=== PATIENT | female | born 1975 | race African-American/Black ===

== ENCOUNTER 2019-09-21 18:13 | Emergency (ER) | payer BC, SELFPAY ==
[2019-09-21 19:11] VITALS: BP 144/82; PULSE 80; RESP 16; TEMP 36.8; O2SAT 100
--- NOTE | 2019-09-21 19:59 | ED.WOUNDLAC ---
HPI - Wound/Laceration General Chief Complaint: Wound/Laceration Stated Complaint: wound right axilla Time Seen by Provider: 09/21/19 19:15 Source: patient Mode of arrival: ambulatory Limitations: no limitations History of Present Illness HPI narrative: This is a 44 year old female that presents to the ER for abscess to right axilla x 2 weeks. Reports it started draining yesterday. Reports the pain was increasing which prompted her to be seen. Denies fever. Related Data Home Medications Medication Instructions Recorded Confirmed topiramate [Topamax] PRN 06/27/19 Allergies Allergy/AdvReac Type Severity Reaction Status Date / Time ampicillin Allergy Rash Verified 09/21/19 19:39 Penicillins Allergy Rash Verified 09/21/19 19:39 Review of Systems Review of Systems: Narrative: CONSTITUTIONAL: Denies fever SKIN: Reports abscess All systems reviewed & are unremarkable except as noted in HPI and below PMFSH Past Medical History Medical History (Updated 09/21/19 @ 20:57 by Rabia Sterling PA-C) History of migraine Social History Social History (Updated 09/21/19 @ 20:05 by Rabia Sterling PA-C) Smoking status: Never smoker Gender identity (if verbalized by the patient): Female Exam Narrative: Exam Narrative: GENERAL: Well-appearing, obese, and in no acute distress. HEAD: Normocephalic, atraumatic. EYES: EOMI. EXTREMITIES: Normal range of motion. No edema. Right axilla with 3cm area of erythema with central fluctuance, spontaneously draining. No lymphangitic streaking SKIN: Warm, dry, no rash. NEURO: No focal deficits. Alert and oriented x3. PSYCH: Normal mood and affect Course Vital Signs Vital signs: Vital Signs Temperature 98.3 F 09/21/19 19:11 Pulse Rate 80 09/21/19 19:11 Respiratory Rate 16 09/21/19 19:11 Blood Pressure 144/82 H 09/21/19 19:11 Pulse Oximetry 100 09/21/19 19:11 Temperature 98.3 F 09/21/19 19:11 Pulse Rate 80 09/21/19 19:11 Respiratory Rate 16 09/21/19 19:11 Blood Pressure 144/82 H 09/21/19 19:11 Pulse Oximetry 100 09/21/19 19:11 Procedures Abscess I/D upper extremity: Date of Incision: 09/21/19 Time of Incision: 20:56 Side (if applicable): right Local Anesthetic: lidocaine 1% and with epi Amount of anesthesia used (mL): 3 Technique: incised with #11 blade Packing used?: iodoform I&D Results: Pus and Blood Abcess I&D Additional Comments: Patient tolerated procedure well MDM - Wound/Laceration MDM Narrative Medical decision making narrative: Patient presents the emergency department for abscess to right axilla. She is afebrile and nontoxic-appearing. Abscess already spontaneously draining, this was opened up a little bit more to ensure proper drainage. She will be started on oral antibiotics. She is to follow-up with primary care doctor. She is given warnings to return to the ER Critical Care Time Critical Care Time Critical Care Time: No Discharge Plan Discharge Clinical Impression: Abscess Patient Disposition: Home, Self-Care Condition: Stable Instructions: Antibiotic Form, Abscess (ED) Additional Instructions: Return if symptoms worsen or concerns, any increase in redness swelling pain or fever over 101 Take antibiotics as directed. Clean wound with mild soapy water. Apply antibiotic ointment and clean dressing at least three times daily. Warm compresses 3 times a day for 30 minutes each Follow up with primary care in the next 2-3 days for re-evaluation and packing removal Prescriptions: New doxycycline hyclate 100 mg tablet 100 mg PO BID 5 Days Qty: 10 RF: 0 No Action topiramate [Topamax] 50 mg Tablet PRN (Reason: Migraine Headache) RF: 0 Follow-up/Referrals: UNKNOWN,DOCTOR [Primary Care Provider] - 3 Days
== END 2019-09-21 21:15 | disposition home or self-care (01) ==
PROVIDERS: Emergency Provider Emergency Medicine
DX: L02.411 Cutaneous abscess of right axilla (principal)
CPT/HCPCS: 10061; 99283

== ENCOUNTER 2020-04-03 20:19 | Emergency (ER) | payer BC, SELFPAY ==
[2020-04-03 20:38] VITALS: BP 149/108; PULSE 98; RESP 20; TEMP 36.3; O2SAT 97
--- NOTE | 2020-04-03 21:16 | ED.PSYCH ---
HPI - Psych General Chief Complaint: Psychiatric Symptoms Stated Complaint: SI, depression Time Seen by Provider: 04/03/20 21:01 Source: patient Mode of arrival: ambulatory Limitations: no limitations History of Present Illness HPI Narrative: This patient is a 45 year old Female with history of depression who presents for evaluation of depression. Police brought patient to ED for psychiatric evaluation. He states patient was crying uncontrollably and the police state that she told them she was suicidal but she had no plan. Patient denies being suicidal to me. She states she is depressed and she is just dealing with a lot. She reports she gets depressed about once a week. She denies having thoughts of hurting herself or anybody else. She does admit to being suicidal 15 years ago but she denies attempting suicide at that time. She stopped taking her Celexa about 1 year ago because she did not think she needed it anymore. Related Data Home Medications Medication Instructions Recorded Confirmed topiramate [Topamax] PRN 06/27/19 Allergies Allergy/AdvReac Type Severity Reaction Status Date / Time ampicillin Allergy Rash Verified 04/03/20 20:43 Penicillins Allergy Rash Verified 04/03/20 20:43 Review of Systems Review of Systems: All systems reviewed & are unremarkable except as noted in HPI and below Constitutional: Constitutional: Denies chills and Denies fever(s) ENT: Denies nasal congestion and Denies sore throat Cardiovascular: Cardiovascular: Denies chest pain Respiratory: Respiratory: Denies cough and Denies dyspnea Gastrointestinal: Gastrointestinal: Denies abdominal pain, Denies nausea and Denies vomiting COUNT INCLUDES THE [facility] Past Medical History Medical History (Updated 04/04/20 @ 03:29 by Rocio Eldridge MD) Depression History of migraine Surgical History Surgical History (Updated 04/04/20 @ 03:25 by Rocio Eldridge MD) History of cholecystectomy Social History Social History (Updated 09/21/19 @ 20:05 by Rabia Sterling PA-C) Smoking status: Never smoker Gender identity (if verbalized by the patient): Female Exam Const: General: no acute distress and alert Orientation/consciousness: patient oriented x3 HENMT: Head: normocephalic and atraumatic Face and sinus: face symmetric Mouth: Yes Normal oral and palatal mucosa present and Yes lip normal Throat: posterior oropharynx normal, tonsils normal and uvula midline Eyes: Pupils: Equal, round and reactive pupils present EOM: EOMs intact bilaterally Resp: Effort & Inspection: normal respiratory effort and no retractions Auscultation: clear to auscultation bilaterally GI: GI Palp: Yes Soft to palpation, No Tenderness to palpation present (GI), No Guarding due to palpation present (GI) and No Rigid due to palpation Neuro: General: patient oriented x3 and moves all extremities Speech: Abnormal speech present Psych: Appearance: well kempt Mental Status: mental status grossly normal Thought content: No Suicidality present and No Hallucination(s) present Course Reevaluation(s) Reevaluation #1: PAtient was assessed by Crisis. She has denied being suicidal to all nursing staff and myself. IT is felt she is safe for discharged. Crisis states she started Depression medication 2 days ago . She will be given antibiotics for abnormal UA Date: 04/04/20 Time: 03:27 Vital Signs Vital signs: Vital Signs Temperature 97.4 F L 04/03/20 20:38 Pulse Rate 98 04/03/20 20:38 Respiratory Rate 20 04/03/20 20:38 Blood Pressure 149/108 H 04/03/20 20:38 Pulse Oximetry 97 04/03/20 20:38 Temperature 98.0 F 04/04/20 03:58 Pulse Rate 78 04/04/20 03:58 Respiratory Rate 16 04/04/20 03:58 Blood Pressure 146/82 H 04/04/20 03:58 Pulse Oximetry 98 04/04/20 03:58 MDM - Psych Lab Data Attestation: I reviewed the patient's lab results. Result diagrams: 04/03/20 21:29 04/03/20 21:29 L
[2020-04-03 21:37] LABS: Basophils Percent Auto 0.4 % (0.2-1.2); Eosinophils Absolute Auto 0.3 K/mm3 (0-0.3); Eosinophils Percent Auto 3.7 % (0-4.4); Hematocrit 41.2 % (37.0-47.0); Hemoglobin 13.5 g/dL (12.0-15.0); Immature Granulocyte Absolute 0.02 K/mm3 (0.00-0.031); Immature Granulocyte Percent A 0.2 % (0-0.5); Lymphocytes Absolute Auto 2.48 K/mm3 (0.9-3.2); Lymphocytes Percent Auto 29.2 % (18.3-44.2); Mean Corpuscular HGB Conc 32.8 g/dl (32-36); Mean Corpuscular Volume 85.3 fl (80-100); Mean Platelet Volume 10.8 fl (7.4-10.4); Monocytes Absolute Auto 0.5 K/mm3 (0.1-0.6); Monocytes Percent Auto 6.4 % (2.6-8.5); Neutrophils Absolute Auto 5.1 K/mm3 (1.3-6.7); Neutrophils Percent Auto 60.1 % (45.5-73.1); Platelet Count Result 238 k/mm3 (150-375); Red Blood Count 4.83 M/mm3 (4.2-5.4); Red Cell Distribution Width 13.4 % (11.5-14.5); White Blood Count 8.5 K/mm3 (4.5-10.0)
[2020-04-03 21:49] LABS: Ethanol < 10 mg/dL (<10)
[2020-04-03 21:54] LABS: Alanine Aminotransferase 49 U/L (4-35); Albumin Level 4.2 g/dL (3.5-5.1); Alkaline Phosphatase 77 U/L (38-126); Anion Gap 8 mmol/L (8-16); Aspartate Amino Transferase 35 U/L (14-36); Bilirubin,Total 0.5 mg/dL (0.2-1.3); Blood Urea Nitrogen 9 mg/dL (7-17); Calcium 9.2 mg/dL (8.4-10.2); Carbon Dioxide 25 mmol/L (22-30); Chloride 105 mmol/L (98-107); Estimated CRCL calculation 114 ml/min; Estimated Glomerular Filt Rate > 60; Glucose 99 mg/dL (65-105); Potassium 3.6 mmol/L (3.4-5.0); Sodium 138 mmol/L (137-145)
[2020-04-03 22:42] LABS: Add Urine Microscopic? YES; Appearance Urine Cloudy (Clear); Bacteria Urine Trace /hpf; Bilirubin Urine Negative (Negative); Blood Urine Negative (Negative); Color Urine Yellow (Yellow); Glucose Urine UA Negative (Negative); Ketones Urine Negative (Negative); Leukocyte Esterase Ur 3+ LEU/UL (Negative); Mucus Urine Heavy /lpf; Nitrate Urine Negative (Negative); Protein Urine 1+ mg/dL (Negative); Specific Grav Ur 1.025 (1.001-1.035); Squamous Epithelial Cell Urine Many /hpf (Few); Urobilinogen Urine Negative mg/dL (<2.0); WBC Urine 21-30 /hpf
[2020-04-03 22:52] LABS: Amphetamine Screen Urine Negative (Negative); Barbiturate Screen Urine Negative (Negative); Benzodiazepines Screen Urine Negative (Negative); Cannabinoid Screen Urine Positive (Negative); Cocaine Screen Urine Negative (Negative); Methadone Screen Urine Negative (Negative); Opiate Screen Urine Negative (Negative); Phencyclidine Screen Urine Negative (Negative)
--- NOTE | 2020-04-03 23:28 | PC.NURSE ---
Pt states she has been depressed this evening due to going through a divorce and she feels as though she should be further in life. Pt denies having any thought of hurting herself or others when asked by this nurse. Pt states she tried to harm herself and was admitted to a [facility] years ago. Pt has a scar that she wrapped with tape and gauze pads to her ankle due to her kicking something out of frustration, MD notified of this. The wound is about a inch long, bleeding has been under control while in ED. Pt currently resting in room.
[2020-04-04 00:02] LABS: Urine Pregnancy Test Negative
[2020-04-04 00:03] LABS: Pregnancy On Board Control Positive
[2020-04-04] MEDS: NITROFURANTOIN MONOHYD MACROCR 100 MG CAP PO (00:09)
[2020-04-04 02:30] VITALS: BP 142/89; PULSE 87; RESP 16; TEMP 36.8; O2SAT 96
--- NOTE | 2020-04-04 03:43 | PC.NURSE ---
Pt rested most of her time. Pt did have a visit from her boyfriend for a short period of time. Pt seemed sad entire stay even with visitor present. Pt requested crackers during this time and they were given.
--- NOTE | 2020-04-04 03:55 | PC.NURSE ---
At 0155 vacuum worker deemed pt stable enough to be allowed d/c. Pt did fill out a safety plan with vacuum worker that was copied and attached to file. Client continued to deny SI or HI upon d/c.
[2020-04-04 03:58] VITALS: BP 146/82; PULSE 78; RESP 16; TEMP 36.7; O2SAT 98
== END 2020-04-04 07:40 | disposition home or self-care (01) ==
PROVIDERS: Emergency Provider General Practice; PCP Internal Medicine Cardiovascular Disease
DX: N39.0 Urinary tract infection, site not specified (principal); F32.9 Major depressive disorder, single episode, unspecified
CPT/HCPCS: 36415; 80053; 80307; 81001; 81025; 84443; 85025; 87086; 87088; 87147; 99284; A9270